=== PATIENT | male | born 1985 | race Caucasian/White ===

== ENCOUNTER 2022-10-25 21:34 | Emergency (ER) | payer MEDICAID ==
[~2022-10-25] VITALS: Ht 182.9 cm; Wt 68.2 kg
[2022-10-25 23:37] VITALS: BP 123/75
[2022-10-26] MEDS ORDERED: sulfamethoxazole/trimethoprim DS (800/160mg) tablet PO ONE (01:05)
[2022-10-26] MEDS ORDERED: SULF1TAB49 PO (01:09)
== END 2022-10-26 01:18 | disposition home or self-care (01) ==
LOC: ER 21:35
DX: L02.511 Cutaneous abscess of right hand (principal)
CPT/HCPCS: 26010; 73140; 99283

== ENCOUNTER 2024-01-14 16:38 | Emergency (ER) | payer MEDICAID ==
[~2024-01-14] VITALS: Ht 182.9 cm; Wt 57.3 kg
[2024-01-14 16:45] VITALS: TEMP 98.9
[2024-01-14 17:07] VITALS: BP 119/84; PULSE 107; O2SAT 97
[2024-01-14] MEDS ORDERED: HYDR-3965 PO (17:23)
[2024-01-14 17:40] VITALS: RESP 16
[2024-01-14] MEDS: HYDROcodone/acetaminophen 10/325mg tab PO ONE (17:40)
== END 2024-01-14 18:47 | disposition home or self-care (01) ==
LOC: ER 16:38
DX: S92.001A Unspecified fracture of right calcaneus, initial encounter for closed fracture (principal); W11.XXXA Fall on and from ladder, initial encounter; Y93.89 Activity, other specified; Y92.89 Other specified places as the place of occurrence of the external cause; Y99.8 Other external cause status
CPT/HCPCS: 29515; 73610; 73630; 99284; A6446